=== PATIENT | male | born 1985 | race Caucasian/White ===

== ENCOUNTER 2020-03-11 00:14 | Emergency (ER) | payer BC ==
[~2020-03-11] VITALS: Ht 193 cm; Wt 122.7 kg
[2020-03-11 00:15] VITALS: BP 169/101
== END 2020-03-11 01:21 | disposition home or self-care (01) ==
LOC: ER 00:15
DX: J06.9 Acute upper respiratory infection, unspecified (principal); R11.10 Vomiting, unspecified; Z87.891 Personal history of nicotine dependence
CPT/HCPCS: 99281